=== PATIENT | male | born 1940 | race Caucasian/White ===

== ENCOUNTER 2021-06-28 09:08 | Day surgery (SDC) | payer MEDICARE, MEDICAID, SELFPAY ==
[2021-06-24 14:35] VITALS: BMI 30.7
--- NOTE | 2021-06-27 08:58 | P.CONAN_ITS ---
Documented by User: Magali Jacinto NP 06/27/21 08:58 HPI - Anesthesia Eval Consult details Narrative: 81yo M for Colonoscopy [facility] Past Medical History Medical History Asthma Bladder cancer Diverticulosis HTN (hypertension) Hx of bipolar disorder Hx of thymoma Pulmonary nodule Surgical History Surgical History H/O colonoscopy History of bladder surgery History of ERCP Hx of cholecystectomy Hx of hernia repair Social History Social History Patient Tobacco Use Status: Tobacco use Unknown Advance Directives Information Provided: No Meds Allergies Allergy/AdvReac Type Severity Reaction Status Date / Time prednisone Allergy Unknown Unknown Verified 06/24/21 14:35 Home Medications Medication Instructions Recorded Confirmed Last Taken Type metoprolol succinate 25 mg 25 mg PO DAILY 06/24/21 06/24/21 Unknown History tablet,extended release 24 hr Exam Exam Date and Time: June 27, 2021 0858 Height,Weight and Vital Signs: Height 5 ft 9 in Weight 94.347 kg Assessment and Plan Assessment Anesthesia Assessment: Chart Reviewed Documented by User: Mary Mike MD 06/28/21 10:59 [facility] Past Medical History Medical History Asthma Bladder cancer Diverticulosis HTN (hypertension) Hx of bipolar disorder Hx of thymoma Pulmonary nodule Surgical History Surgical History H/O colonoscopy History of bladder surgery History of ERCP Hx of cholecystectomy Hx of hernia repair History of Problems with Anesthesia: No Social History Social History Patient Tobacco Use Status: Tobacco use Unknown Advance Directives Information Provided: No Meds Allergies Allergy/AdvReac Type Severity Reaction Status Date / Time prednisone Allergy Unknown Unknown Verified 06/24/21 14:35 Home Medications Medication Instructions Recorded Confirmed Last Taken Type metoprolol succinate 25 mg 25 mg PO DAILY 06/24/21 06/24/21 Unknown History tablet,extended release 24 hr Exam Airway Mallampati Class: III TM Dist: >3cm Neck ROM: Full Partial: Upper and Lower Loose/Missing/Broken Teeth: Yes, Upper and Lower Heart: RRR Lungs: CTA Assessment and Plan Assessment Anesthesia Assessment: Anesthesia Plan Discussed Final Anesthetic Review History of Problems with Anesthesia: No NPO: Yes ASA Class: II Final Preanesthetic Review: Meds/Allgs Chart Reviewed, Consent Obtained/Reviewed and Anes Risks/Benef Reviewed Patient Risk: Low Procedure Risk: Low Anesthetic Plan Anesthetic Plan: MAC: Disposition: Standard PACU
[2021-06-28 09:49] VITALS: BP 139/79; PULSE 84; RESP 16; TEMP 36.6; O2SAT 98
[2021-06-28] MEDS: Lactated Ringers 1,000 ML 100 ML IVCONT (10:00)
--- NOTE | 2021-06-28 10:46 | MHC.SHP ---
Pre-Procedural Eval Section A Date of Service: 06/28/21 The patient is an INPATIENT: No Changes since office visit: No Cold of Flu in the past 2 weeks, No New Medical Problems, No Changes in Medication and No Patient answered all questions The History & Physical has been completed within 30 days and I have reviewed it.: Yes Section B Chief Complaint: rectal bleeding Allergies: Allergies Allergy/AdvReac Type Severity Reaction Status Date / Time prednisone Allergy Unknown Unknown Verified 06/24/21 14:35 Plan I have reviewed the history and physical and performed a pertinent physical examination on my patient. No changes have occurred unless specified.
[2021-06-28 11:15] VITALS: BP 100/57; PULSE 73; RESP 18; TEMP 36.1; O2SAT 99
--- NOTE | 2021-06-28 11:19 | P.BOP_ITS ---
Brief Operative Note Date of Service: 06/28/21 Pre-op diagnosis: rectal bleeding Post-op diagnosis: same (colon polyp) Surgeon: Boaz Gasca Anesthesia: MAC Was an [employer] used for this Procedure?: No Estimated blood loss (mL): 2 Pathology: other (polyp x1) Condition: stable Disposition: PACU
[2021-06-28 11:30] VITALS: BP 123/61; PULSE 70; RESP 16; TEMP 36.1; O2SAT 97
--- NOTE | 2021-06-28 18:06 | OP_ITS ---
SURGEON: Boaz Gasca MD INDICATIONS: Rectal bleeding. PREOPERATIVE DIAGNOSIS: POSTOPERATIVE DIAGNOSIS: PROCEDURE PERFORMED: Colonoscopy to the terminal ileum with biopsy. ESTIMATED BLOOD LOSS: COMPLICATIONS: ANESTHESIA: ASSISTANTS: SPECIMENS: MEDICATIONS: Monitored anesthesia care. DESCRIPTION OF PROCEDURE: History and physical performed. The risks and benefits of procedure were explained to the patient. Informed consent was obtained. The patient was placed in left lateral decubitus position. A digital rectal exam was performed and was found to be normal. The Olympus pediatric video colonoscope was introduced into the rectum and advanced to the cecum without difficulty. The cecum was identified by transillumination, palpation, and identification of ileocecal valve. Examination was performed and the scope was removed. He tolerated the procedure well and was taken to recovery area in stable condition. FINDINGS: The terminal ileum was normal. The visualized colonic mucosa was normal. The quality of the prep was good. A single polyp was identified in the cecum measuring less than 5 mm. This was removed with biopsy forceps. No other polyps were identified. Retroflexed examination showed small internal hemorrhoids. IMPRESSION: Colon polyp. RECOMMENDATION: Follow up the biopsy results. MD DANITA Wilson/GORDY / [id number]
== END 2021-06-28 12:10 | disposition home or self-care (01) ==
PROVIDERS: PCP Internal Medicine; Visit Provider Internal Medicine Gastroenterology
PROC: 0DJD8ZZ Inspection of Lower Intestinal Tract, Via Natural or Artificial Opening Endoscopic (ICD-10-PCS; CPT 45378; principal; 2021-06-28 10:50)
DX: K62.5 Hemorrhage of anus and rectum (principal); D12.0 Benign neoplasm of cecum; K64.8 Other hemorrhoids; I10 Essential (primary) hypertension; J45.909 Unspecified asthma, uncomplicated; R91.1 Solitary pulmonary nodule; Z85.51 Personal history of malignant neoplasm of bladder; Z79.899 Other long term (current) drug therapy; Z88.8 Allergy status to other drugs, medicaments and biological substances
CPT/HCPCS: 45380; 88305